=== PATIENT | male | born 1995 | race Caucasian/White ===

== ENCOUNTER 2018-02-27 10:52 | Emergency (ER) | payer OTHER ==
[2018-02-27] MEDS ORDERED: Adacel (T-DAP) 0.5 ML VIAL ONE (10:57)
--- NOTE | 2018-02-27 11:52 | CT ---
CT HEAD NONCONTRAST: Date: 02/27/18 HISTORY: Fall from horse. Head injury. FINDINGS: There is no evidence of acute intracranial hemorrhage or infarct. Ventricles appear normal in size, s hape, and position. No mass effect or shift of midline structures. Visualized paranasal sinuses remai n well aerated. IMPRESSION: No acute intracranial abnormalities are demonstrated. Findings called to Dr. Lipscomb in the emergency department at 1114 hours. CODE CR. POS: [facility]
--- NOTE | 2018-02-27 11:53 | CT ---
CT OF THE CERVICAL SPINE WITHOUT CONTRAST: Date: 02/27/18 HISTORY: Level II trauma. Patient was thrown from a horse today with neck pain. TECHNIQUE: Multiple contiguous axial images were obtained in a CT of the cervical spine without contrast. Sagitt al and coronal reformats were performed. FINDINGS: The vertebral bodies and intervertebral discs demonstrate normal height and alignment without fractur e or subluxation. No prevertebral soft tissue swelling is present. The posterior facets are well alig susan. Normal alignment of the skull base with the cervical spine is seen. IMPRESSION: No evidence of acute osseous abnormality of the cervical spine. Dr. Lipscomb notified of findings at 1119 hours on 02/27/18. CODE CR. POS: [facility]
[2018-02-27] MEDS ORDERED: Ketorolac Tromethamine 30 MG/ML VIAL ONE (12:00)
--- NOTE | 2018-02-27 12:03 | CT ---
CT CHEST WITH IV CONTRAST CT ABDOMEN AND PELVIS WITH IV CONTRAST CT THORACIC SPINE NONCONTRAST CT LUMBAR SPINE NONCONTRAST: Date: 02/27/18 HISTORY: Fall from horse. Chest injury. Abdomen injury. Back injury. FINDINGS: There is no evidence of pneumothorax or mediastinal hematoma. The liver, spleen, kidneys, adrenal gla nds, and pancreas have a normal CT appearance. No enlarged lymph nodes or free fluid. Urinary bladder is intact. There is minimal compression of the T10 superior end plate with no retropulsion. Axial images show no adjacent hematoma. Central canal and neural foramina remain patent. Subtle sclerosis associated with the T5 and T6 superior end plates are noted without significant depression. IMPRESSION: Probable very mild compression of T10 superior end plate without retropulsion or other complication. (Mid thoracic vertebral compressions are favored to be less likely.) If symptoms are present, MRI thoracic spine could be used to evaluate for bone marrow edema. No evide nce of complication. Findings called to Dr. Lipscomb in the emergency department at 1124 hours. CODE CR. POS: [facility]
[2018-02-27] MEDS ORDERED: ISOVUE-370 76%-LOCM 1 ML ONE (13:03)
== END 2018-02-27 12:00 | disposition home or self-care (01) ==
LOC: ERS 10:52
DX: S09.90XA Unspecified injury of head, initial encounter (principal); S22.079A Unspecified fracture of T9-T10 vertebra, initial encounter for closed fracture; S13.4XXA Sprain of ligaments of cervical spine, initial encounter; V80.010A Animal-rider injured by fall from or being thrown from horse in noncollision accident, initial encounter
CPT/HCPCS: 70450; 71260; 72125; 74177; 90471; 90715; 96374; G0390; J1885